=== PATIENT | female | born 1945 | race Two or more races ===

== ENCOUNTER 2018-02-01 10:26 | Outpatient (CLI) | payer OTHER ==
[~2018-02-01 10:26] MED LIST: BIOTIN; CENTRUM; GLUCOSAMINE CHO1 CA2 PO; VIT E; ZETIA10 MG PO; [UNRECOGNIZED DRUG - OTHER]
== END 2018-02-01 10:41 | disposition home or self-care (01) ==
LOC: MAMO-SONO 10:26
DX: Z12.31 Encounter for screening mammogram for malignant neoplasm of breast (principal); N60.11 Diffuse cystic mastopathy of right breast; N60.12 Diffuse cystic mastopathy of left breast

== ENCOUNTER 2019-01-06 10:16 | Outpatient (CLI) | payer OTHER | END 2019-01-06 10:37 | disposition home or self-care (01) | LOC: NUCLEAR 10:16 | DX: M81.0 Age-related osteoporosis without current pathological fracture (principal) ==

== ENCOUNTER 2019-02-05 12:04 | Outpatient (CLI) | payer OTHER | END 2019-02-05 12:41 | disposition home or self-care (01) | LOC: MAMO-SONO 12:04 | DX: Z12.31 Encounter for screening mammogram for malignant neoplasm of breast (principal); N60.11 Diffuse cystic mastopathy of right breast; N60.12 Diffuse cystic mastopathy of left breast ==

== ENCOUNTER 2019-03-18 14:25 | Outpatient (CLI) | payer OTHER | END 2019-03-18 14:37 | disposition home or self-care (01) | LOC: TOM 14:25 | DX: J32.0 Chronic maxillary sinusitis (principal); M26.621 Arthralgia of right temporomandibular joint ==

== ENCOUNTER → 2020-02-09 | Outpatient (CLI) | payer OTHER | END | disposition home or self-care (01) | LOC: MAMO-SONO 02-03 14:45 | PROVIDERS: ATTEND Obstetrics & Gynecology | DX: Z12.31 Encounter for screening mammogram for malignant neoplasm of breast (principal); N60.11 Diffuse cystic mastopathy of right breast; N60.12 Diffuse cystic mastopathy of left breast ==

== ENCOUNTER 2021-02-10 10:32 | Outpatient (CLI) | payer OTHER | END 2021-02-10 10:33 | disposition home or self-care (01) | LOC: MAMO-SONO 10:32 | PROVIDERS: ATTEND Specialist | DX: N60.11 Diffuse cystic mastopathy of right breast (principal); N60.12 Diffuse cystic mastopathy of left breast; Z12.31 Encounter for screening mammogram for malignant neoplasm of breast ==

== ENCOUNTER 2022-02-14 09:10 | Outpatient (CLI) | payer OTHER | END 2022-02-14 09:19 | disposition home or self-care (01) | LOC: MAMO-SONO 09:10 | PROVIDERS: ATTEND Specialist | DX: N60.11 Diffuse cystic mastopathy of right breast (principal); N60.12 Diffuse cystic mastopathy of left breast ==

== ENCOUNTER 2022-06-12 08:45 | Outpatient (CLI) | payer OTHER | END 2022-06-12 08:55 | disposition home or self-care (01) | LOC: PPH VACUNA 08:45 | PROVIDERS: ATTEND Emergency Medicine Pediatric Emergency Medicine | DX: Z23 Encounter for immunization (principal) ==

== ENCOUNTER 2022-06-14 12:04 | Emergency (ER) | payer OTHER ==
[~2022-06-14] VITALS: Ht 167.6 cm; Wt 83.9 kg
[2022-06-14] MEDS ORDERED: ROSUVASTATIN CA10 MG PO (12:46)
[2022-06-14] MEDS ORDERED: DUI500 PO (14:48)
== END 2022-06-14 15:29 | disposition home or self-care (01) ==
LOC: ER 12:04
DX: S01.81XA Laceration without foreign body of other part of head, initial encounter (principal); W18.30XA Fall on same level, unspecified, initial encounter; Y93.01 Activity, walking, marching and hiking; Y92.410 Unspecified street and highway as the place of occurrence of the external cause; Y99.9 Unspecified external cause status

== ENCOUNTER 2023-01-31 11:33 | Outpatient (CLI) | payer OTHER ==
[~2023-01-31 11:33] MED LIST changes: +DUI500 PO; +ROSUVASTATIN CA10 MG PO
== END 2023-01-31 11:40 | disposition home or self-care (01) ==
LOC: RAD 11:33
DX: Z01.811 Encounter for preprocedural respiratory examination (principal); R06.02 Shortness of breath

== ENCOUNTER → 2023-02-09 | Outpatient (CLI) | payer OTHER | END | disposition home or self-care (01) | LOC: NUCLEAR 11-10 13:00 | PROVIDERS: ATTEND Specialist | DX: M81.0 Age-related osteoporosis without current pathological fracture (principal) ==

== ENCOUNTER 2024-02-22 10:15 | Outpatient (CLI) | payer OTHER | END 2024-02-22 11:05 | disposition home or self-care (01) | LOC: MAMO-SONO 10:15 | PROVIDERS: ATTEND Specialist | DX: N60.11 Diffuse cystic mastopathy of right breast (principal); N60.12 Diffuse cystic mastopathy of left breast ==

== ENCOUNTER 2024-03-05 13:11 | Outpatient (CLI) | payer OTHER | END 2024-03-05 14:34 | disposition home or self-care (01) | LOC: SONOGRAMA 13:11 | PROVIDERS: ATTEND Specialist | DX: R10.2 Pelvic and perineal pain (principal); D25.9 Leiomyoma of uterus, unspecified ==

== ENCOUNTER 2025-02-25 09:44 | Outpatient (CLI) | payer OTHER | END 2025-02-25 10:16 | disposition home or self-care (01) | LOC: MAMO-SONO 09:44 | PROVIDERS: ATTEND Specialist | DX: R10.2 Pelvic and perineal pain (principal); N60.12 Diffuse cystic mastopathy of left breast; N60.11 Diffuse cystic mastopathy of right breast ==